=== PATIENT | female | born 1960 | race Caucasian/White ===

== ENCOUNTER → 2017-01-03 | Outpatient (CLI) | payer BC ==
--- NOTE | 2017-01-05 09:00 | MM ---
Reason for exam: screening (asymptomatic). Last mammogram was performed 4 years and 2 months ago. History: Family history of breast cancer in maternal grandmother. Benign US right guided mammotome of the right breast, October 13, 2007. Took hormonal contraceptives for 5 years beginning at age 19. Physical Findings: A clinical breast exam by your physician is recommended on an annual basis and results should be correlated with mammographic findings. MG Screening Mammo w CAD Bilateral CC and MLO view(s) were taken. Prior study comparison: November 10, 2012, bilateral digital screening mammo w/CAD. The breast tissue is heterogeneously dense. This may lower the sensitivity of mammography. Previous mammotome biopsy within the right breast. No significant changes when compared with prior studies. ASSESSMENT: Negative, BI-RAD 1 RECOMMENDATION: Routine screening mammogram of both breasts in 1 year.
== END | disposition home or self-care (01) ==
LOC: RADMAMWWP 06:55
PROVIDERS: ATTEND Family Medicine
DX: Z12.31 Encounter for screening mammogram for malignant neoplasm of breast (principal); Z80.3 Family history of malignant neoplasm of breast

== ENCOUNTER 2017-11-24 22:42 | Observation (INO) | payer BC ==
[2017-11-24] MEDS ORDERED: SODIUM CHLORIDE 0.9% 1,000 ML IV STA ×2 (23:04→23:26)
--- NOTE | 2017-11-24 23:16 | ED ---
Chest Pain HPI - General Chief Complaint: Chest Pain Stated Complaint: Neck/arm pain, nausea Time Seen by Provider: 11/24/17 22:58 Source: patient, RN notes reviewed, old records reviewed Mode of arrival: ambulatory Limitations: no limitations - History of Present Illness Initial Comments: This is a 49-year-old female the ER with history of heart disease coming of left -sided chest pain radiation to left shoulder radiation to left back. No recent travel history no sick contacts no fevers cough or congestion, episodic shortness of breath MD Complaint: chest pain -: hour(s) (1) Onset: during rest Pain Location: left chest Pain Radiation: LUE Severity: mild Severity scale (1-10): 3 Quality: tightness Consistency: constant Improves With: nothing Worsens With: nothing Context: other Anginal Symptoms: nausea Other Symptoms: cough Treatments Prior to Arrival: none, aspirin - Related Data Home Medications Medication Instructions Recorded Confirmed Omeprazole 20 mg PO DAILY 11/24/17 11/24/17 Previous Rx's Medication Instructions Recorded Aspirin 325 mg PO DAILY tab 11/27/17 Metoprolol Tartrate [Lopressor] 25 mg PO BID tab 11/27/17 Nitroglycerin Sl Tabs [Nitrostat] 0.4 mg SUBLINGUAL Q5M PRN tab 11/27/17 Allergies Allergy/AdvReac Type Severity Reaction Status Date / Time No Known Allergies Allergy Verified 11/24/17 23:04 Review of Systems ROS Statement: Those systems with pertinent positive or pertinent negative responses have been documented in the HPI. ROS Other: All systems not noted in ROS Statement are negative. EKG Findings - EKG Comments: EKG Findings:: EKG shows sinus rhythm rate of 77, HI 154, QRS 88, QTC 418 Past Medical History History of Any Multi-Drug Resistant Organisms: None Reported Additional Past Surgical History / Comment(s): LEFT THYROID GLAND REMOVED Past Psychological History: No Psychological Hx Reported Smoking Status: Never smoker Past Alcohol Use History: None Reported Past Drug Use History: None Reported General Exam Limitations: no limitations General appearance: alert, in no apparent distress Head exam: Present: atraumatic, normocephalic, normal inspection Eye exam: Present: normal appearance, PERRL, EOMI. Absent: scleral icterus, conjunctival injection, periorbital swelling ENT exam: Present: normal exam, mucous membranes moist Neck exam: Present: normal inspection. Absent: tenderness, meningismus, lymphadenopathy Respiratory exam: Present: normal lung sounds bilaterally. Absent: respiratory distress, wheezes, rales, rhonchi, stridor Cardiovascular Exam: Present: regular rate, normal rhythm, normal heart sounds. Absent: systolic murmur, diastolic murmur, rubs, gallop, clicks GI/Abdominal exam: Present: soft, normal bowel sounds. Absent: distended, tenderness, guarding, rebound, rigid Extremities exam: Present: normal inspection, full ROM, normal capillary refill. Absent: tenderness, pedal edema, joint swelling, calf tenderness Back exam: Present: normal inspection Neurological exam: Present: alert, oriented X3, CN II-XII intact Psychiatric exam: Present: normal affect, normal mood Skin exam: Present: warm, dry, intact, normal color. Absent: rash Course Vital Signs 11/24/17 11/25/17 22:50 01:03 Temperature 98.2 F Pulse Rate 90 76 Respiratory 18 16 Rate Blood Pressure 186/99 141/91 O2 Sat by Pulse 99 97 Oximetry - Reevaluation(s) Reevaluation #1: 11/25/17 00:34 Medical record is reviewed noncontributory Reevaluation #2: 11/25/17 00:34 CTA chest is negative for PE, does show aneurysmal aorta 4.4cm Chest Pain MDM - MDM 49 female the ER with chest pain. Left-sided classic chest pain with history of family history of heart disease. Patient be admitted for cardiac observation and evaluation and treatment Critical Care Time Critical Care Time: Yes Total Critical Care Time: 31 Disposition Clinical Impression: Chest pain Disposition: ADMITTED IP TO THIS HOSP Condition: Undetermined Is patient prescribed a controlled substance at d/c from ED?: No
[2017-11-24 23:17] LABS: Basophils % (A) 1 %; Eosinophils # (A) 0.2 k/uL (0-0.7); Eosinophils % (A) 3 %; HCT 40.4 % (34.0-46.0); HGB 13.3 gm/dL (11.4-16.0); Lymphocytes % (A) 39 %; MCHC 32.8 g/dL (31.0-37.0); MCV 88.4 fL (80.0-100.0); Mean Platelet Volume 6.8; Monocytes # (A) 0.5 k/uL (0-1.0); Monocytes % (A) 6 %; Neutrophils # (A) 3.7 k/uL (1.3-7.7); Neutrophils % (A) 49 %; Platelet Count 331 k/uL (150-450); RBC 4.57 m/uL (3.80-5.40); RDW 13.1 % (11.5-15.5); WBC 7.6 k/uL (3.8-10.6)
[2017-11-24 23:26] LABS: Partial Thromboplastin Time 24.6 sec (22.0-30.0); Prothrombin Time 9.8 sec (9.0-12.0)
[2017-11-24] MEDS ORDERED: LABETALOL 5 MG/ML VIAL MDV IVP STA (23:26)
[2017-11-24 23:28] LABS: ALT 27 U/L (9-52); AST 27 U/L (14-36); Albumin 4.4 g/dL (3.5-5.0); Alkaline Phosphatase 86 U/L (38-126); Anion Gap 10 mmol/L; Blood Urea Nitrogen 13 mg/dL (7-17); Calcium 9.5 mg/dL (8.4-10.2); Carbon Dioxide 26 mmol/L (22-30); Chloride 106 mmol/L (98-107); Glucose 107 mg/dL (74-99); Magnesium 1.9 mg/dL (1.6-2.3); Phosphorus 3.6 mg/dL (2.5-4.5); Potassium 3.8 mmol/L (3.5-5.1); Sodium 142 mmol/L (137-145); Total Bilirubin 0.4 mg/dL (0.2-1.3); Total Protein 7.5 g/dL (6.3-8.2)
[2017-11-24 23:40] LABS: Creatine Kinase 111 U/L (30-135)
[2017-11-24 23:53] LABS: Creatine Kinase MB 1.1 ng/mL (0.0-2.4); Troponin I <0.012 ng/mL (0.000-0.034)
--- NOTE | 2017-11-25 00:11 | CT ---
EXAMINATION TYPE: CT angio chest DATE OF EXAM: 11/24/2017 11:52 PM COMPARISON: None HISTORY: Burning in chest; neck and left arm pain CT DLP: 152.40 mGycm Automated exposure control for dose reduction was used. CONTRAST: CTA scan of the thorax is performed with IV Contrast, patient injected with 100 mL of Isovue 370, pul monary embolism protocol. There are 3-D post processed images.. FINDINGS: The lungs are clear of consolidation. There is no pleural effusion. There is no evidence of a pulmona ry mass. There is no pericardial effusion. Heart is top normal in size. There is normal contrast opacification of the pulmonary arteries. I see no filling defect. There is a neurysm of the ascending aorta that measures 4.4 cm. There is no evidence of dissection. There is no mediastinal adenopathy. There are no hilar masses. The bony thorax is intact. IMPRESSION: NO EVIDENCE OF PULMONARY EMBOLISM. ANEURYSM OF THE ASCENDING AORTA.
--- NOTE | 2017-11-25 00:29 | CT ---
EXAMINATION TYPE: CT abdomen pelvis w con DATE OF EXAM: 11/24/2017 COMPARISON: None HISTORY: burning in chest; neck and left arm pain. CT DLP: 1464.00 mGycm Automated exposure control for dose reduction was used. TECHNIQUE: Helical acquisition of images was performed from the lung bases through the pelvis. CONTRAST: Performed without Oral Contrast and with IV Contrast, patient injected with 100 mL of Isovue 370. FINDINGS: Lung bases are clear. There is no pleural effusion. There is no pericardial effusion. Heart appears s lightly enlarged. Stomach appears normal. There are multiple circumscribed hypodensities in the liver consistent with m ultiple cysts. There is an atypical 3 cm similar focus in the left lobe of the liver with some centra l increased density. This could be a hemangioma. The spleen appears normal. There is no pancreatic ma ss. Gallbladder appears normal. There is no adrenal mass. Kidneys show satisfactory contrast opacific ation. There is no hydronephrosis. Ureters are not dilated. There is normal contrast excretion on the delayed images of both kidneys. There is no retroperitoneal adenopathy. There is no mesenteric adenopathy or edema. Bladder distends smoothly. Uterus is retroverted. There is no free fluid in the pelvis. I see no pelvic mass. There is prominent left ovarian vein. The mid and lower left ovarian vein do not appear to enhance with the c ontrast. The appendix appears normal. Appendix is medial. I see no intestinal wall thickening. There are no dilated loops. There is no sign of free air. There is no inguinal hernia. The bony pelvis appears intact. IMPRESSION: THERE IS SHARPLY MARGINATED ROUNDED LESION IN THE LEFT LOBE OF THE LIVER WHICH COULD BE A HEMANGIOMA. THIS COULD BE FURTHER EVALUATED WITH ULTRASOUND OR MR IF CLINICALLY INDICATED. I HAVE NO OLD EXAM TO COMPARE. POSSIBLE THROMBOSIS OF THE LEFT OVARIAN VEIN. MULTIPLE HEPATIC CYSTS.
[2017-11-25] MEDS ORDERED: ASPIRIN 81 MG PO STA (00:39)
[2017-11-25] MEDS ORDERED: NITROGLYCERIN SL TABS 0.4 MG TAB SUBLINGUAL PRN (00:39)
[2017-11-25] MEDS ORDERED: HEPARIN SODIUM,PORCINE 5,000 UNIT/ML 1 ML VIAL IV ONE (00:39)
[2017-11-25] MEDS ORDERED: HEPARIN SODIUM,PORCINE 5,000 UNIT/ML 1 ML VIAL IV PRN (00:39)
[2017-11-25] MEDS ORDERED: HEPARIN SOD,PORK IN 0.45% NACL 25,000 UNIT in 0.45% NACL 1 500ML.BAG IV SCH (00:45)
[2017-11-25 06:23] LABS: Mean Platelet Volume 6.9; Platelet Count 295 k/uL (150-450)
[2017-11-25 06:45] LABS: Creatine Kinase 93 U/L (30-135)
[2017-11-25 06:59] LABS: Creatine Kinase MB 0.9 ng/mL (0.0-2.4); Troponin I <0.012 ng/mL (0.000-0.034)
--- NOTE | 2017-11-25 09:32 | P.CRDCN ---
History of Present Illness Consult date: 11/25/17 History of present illness: This is a 57-year-old female with history of labile hypertension who presented to the emergency room with complaints of left-sided shoulder pain associated with nausea and vomiting. Patient had similar symptoms about 2 years ago for which she was evaluated in the emergency room. Subsequently she was seen by Dr. ANNIA Morris and had a stress test in the office. Apparently there was mild abnormality in the past and she has been following with him. Patient hasn't been taking any medications. Yesterday, when she had the shoulder pain, She checked her blood pressure was was high in the range of 160/100. She was also nauseated and vomiting. Patient came to the emergency room and is admitted here for further evaluation. She denied any abdominal pain. Her EKG did not reveal any acute changes. Cardiac enzymes are negative. Patient does have a history of ischemic heart disease in the family. Both her parents had heart attacks in their 60s and 70s. Patient is being scheduled for a stress echocardiogram. Further recommendations depend upon the findings on the stress test Review of Systems As per the chart Past Medical History History of Any Multi-Drug Resistant Organisms: None Reported Additional Past Surgical History / Comment(s): LEFT THYROID GLAND REMOVED Past Psychological History: No Psychological Hx Reported Smoking Status: Never smoker Past Alcohol Use History: None Reported Past Drug Use History: None Reported Medications and Allergies Home Medications Medication Instructions Recorded Confirmed Type Omeprazole 20 mg PO DAILY 11/24/17 11/24/17 History Allergies Allergy/AdvReac Type Severity Reaction Status Date / Time No Known Allergies Allergy Verified 11/24/17 23:04 Physical Exam Vitals: Vital Signs Temp Pulse Pulse Resp BP BP Pulse Ox 11/25/17 04:00 97.2 F L 72 18 125/79 98 11/25/17 02:29 68 18 11/25/17 02:13 97.4 F L 68 18 151/81 96 11/25/17 01:03 76 16 141/91 97 11/24/17 22:50 98.2 F 90 18 186/99 99 Intake and Output 11/24/17 11/25/17 11/25/17 22:59 06:59 14:59 Other: Voiding Method Toilet # Voids 1 Weight 59.421 kg 59.3 kg GENERAL EXAM: Patient is alert and oriented and doesn't appear to be in any acute distress HEENT: Normocephalic. Normal reaction of pupils, equal size, normal range of extraocular motion. No erythema or exudates in the throat. NECK: No masses, no nuchal rigidity. CHEST: No chest wall deformity. LUNGS: Equal air entry with no crackles or wheeze. HEART: S1 and S2 normal with no audible mumurs or gallops. Regular rhythm, femorals equal on both sides.. ABDOMEN: No hepatosplenomegaly, normal bowel sounds, no guarding or rigidity. SKIN: No rashes CENTRAL NERVOUS SYSTEM: No focal deficits. EXTREMITIES: No cyanosis, clubbing or edema. Results 11/25/17 05:53 11/24/17 23:20 Cardiac Enzymes 11/24/17 11/24/17 11/25/17 Range/Units 23:20 23:20 05:53 AST 27 (14-36) U/L CK-MB (CK-2) 1.1 0.9 (0.0-2.4) ng/mL Troponin I <0.012 <0.012 (0.000-0.034) ng/mL Coagulation 11/24/17 11/25/17 Range/Units 23:10 07:37 PT 9.8 (9.0-12.0) sec APTT 24.6 53.6 H (22.0-30.0) sec CBC 11/24/17 11/25/17 Range/Units 23:11 05:53 WBC 7.6 (3.8-10.6) k/uL RBC 4.57 (3.80-5.40) m/uL Hgb 13.3 (11.4-16.0) gm/dL Hct 40.4 (34.0-46.0) % Plt Count 331 295 (150-450) k/uL Comprehensive Metabolic Panel 11/24/17 Range/Units 23:20 Sodium 142 (137-145) mmol/L Potassium 3.8 (3.5-5.1) mmol/L Chloride 106 (98-107) mmol/L Carbon Dioxide 26 (22-30) mmol/L BUN 13 (7-17) mg/dL Creatinine 0.72 (0.52-1.04) mg/dL Glucose 107 H (74-99) mg/dL Calcium 9.5 (8.4-10.2) mg/dL AST 27 (14-36) U/L ALT 27 (9-52) U/L Alkaline Phosphatase 86 (38-126) U/L Total Protein 7.5 (6.3-8.2) g/dL Albumin 4.4 (3.5-5.0) g/dL Current Medications Generic Name Dose Route Start Last Admin Trade Name Freq PRN Reason Stop Dose Admin Aspirin 325 mg 11/26/17 09:00 Aspirin PO DAILY [facility] Heparin Sodium (Porcine) 0 unit 11/25/17 00:39 Heparin IV Q6HR PRN Low PTT Protocol Heparin Sodium/Sodium Chloride 500 mls @ 14.26 mls/hr 11/25/17 00:45 01:45 25,000 unit/ Sodium Chloride IV 12.03 units/kg/hr .Q24H AJITH 14.3 mls/hr Administration Protocol 12 UNITS/KG/HR Metoprolol Tartrate 25 mg 11/25/17 09:00 Lopressor PO BID [facility] Nitroglycerin 0.4 mg 11/25/17 00:39 Nitrostat SUBLINGUAL Q5M PRN Chest Pain Intake and Output 11/24/17 11/25/17 11/25/17 22:59 06:59 14:59 Other: Voiding Method Toilet # Voids 1 Weight 59.421 kg 59.3 kg 11/25/17 05:53 11/24/17 23:20 EKG Interpretations (text) Sinus rhythm with poor R-wave progression in anterior leads Assessment and Plan (1) Labile hypertension Current Visit: Yes Status: Acute Code(s): R09.89 - OTH SYMPTOMS AND SIGNS INVOLVING THE CIRC AND RESP SYSTEMS SNOMED Code(s): 679940380 (2) Chest pain Current Visit: Yes Status: Acute Code(s): R07.9 - CHEST PAIN, UNSPECIFIED SNOMED Code(s): 90330344 Plan: Will proceed with a stress echocardiogram. If that is negative patient could be discharged home. Follow-up with Dr. ANNIA Morris
[2017-11-25] MEDS ORDERED: CAFFEINE CITRATE 60 MG/3 ML VIAL IV PRN (09:41)
[2017-11-25] MEDS ORDERED: REGADENOSON 0.4 MG/5 ML SYRINGE IV ONE (09:41)
[2017-11-25] MEDS ORDERED: SODIUM CHLORIDE 0.9% 1,000 ML IV ONE (09:41)
--- NOTE | 2017-11-25 11:11 | P.HPIM ---
History of Present Illness H&P Date: 11/25/17 Chief Complaint: Chest pain This is a 57-year-old female, patient of Dr. Jalloh. 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 Patient presented to the emergency room with complaints of left shoulder pain associated with nausea and vomiting. Patient reports she did take an aspirin and did help relieve the symptoms. His she had a previous stress test but her urine a half ago. Per patient had mild abnormality in she's been following up with him in the outpatient setting. Patient presented to the emergency room for further evaluation of this left shoulder pain. Both her mom and dad have a known history of heart disease. troponins were negative 3. EKG normal sinus rhythm. CT of the chest was negative for PE but did reveal a 4.4 cm ascending aortic aneurysm. Abdominal CAT scan completed showing a sharply marginated rounded lesion in the left lower lobe of the liver which could be a hemangioma. Abdominal ultrasound has been ordered for further evaluation of this. Also noted on CAT scan and possible thrombus of the left ovarian vein and multiple hepatic cysts. At this time patient is chest pain-free. She denies any shortness of breath. Denies any diaphoresis denies any dizziness or lightheadedness. Denies any bowel movement changes or urinary symptoms. She has been evaluated by cardiology and she is scheduled for a stress echo. Review of Systems Please refer to HPI otherwise unremarkable Past Medical History History of Any Multi-Drug Resistant Organisms: None Reported Additional Past Surgical History / Comment(s): LEFT THYROID GLAND REMOVED Past Psychological History: No Psychological Hx Reported Smoking Status: Never smoker Past Alcohol Use History: None Reported Past Drug Use History: None Reported Medications and Allergies Home Medications Medication Instructions Recorded Confirmed Type Omeprazole 20 mg PO DAILY 11/24/17 11/24/17 History Allergies Allergy/AdvReac Type Severity Reaction Status Date / Time No Known Allergies Allergy Verified 11/24/17 23:04 Physical Exam Vitals: Vital Signs Temp Pulse Pulse Resp BP BP Pulse Ox 11/25/17 09:00 97.3 F L 72 15 148/82 97 11/25/17 08:45 65 15 11/25/17 04:00 97.2 F L 72 18 125/79 98 11/25/17 02:29 68 18 11/25/17 02:13 97.4 F L 68 18 151/81 96 11/25/17 01:03 76 16 141/91 97 11/24/17 22:50 98.2 F 90 18 186/99 99 Intake and Output 11/24/17 11/25/17 11/25/17 22:59 06:59 14:59 Other: Voiding Method Toilet Toilet # Voids 1 Weight 59.421 kg 59.3 kg Head normocephalic Neck supple Lungs clear to auscultation bilaterally no wheezing or crackles Heart regular rate and rhythm S1-S2, no rub or gallop Abdomen is soft nontender nondistended positive bowel sounds no hepatosplenomegaly Extremities no edema Neuro alert and orientated to 3 Results CBC & Chem 7: 11/25/17 05:53 11/24/17 23:20 Labs: Abnormal Lab Results - Last 24 Hours (Table) 11/24/17 11/25/17 Range/Units 23:20 07:37 APTT 53.6 H (22.0-30.0) sec Glucose 107 H (74-99) mg/dL Thrombosis Risk Factor Assmnt - Choose All That Apply Any of the Below Risk Factors Present?: Yes Each Factor Represents 1 point: Age 41-60 years Other Risk Factors: No Other congenital or acquired thrombophilia - If yes, enter type in comment: No Thrombosis Risk Factor Assessment Total Risk Factor Score: 1 Thrombosis Risk Factor Assessment Level: Low Risk Assessment and Plan Assessment: 1. Chest pain: Troponins negative 3 sets. EKG normal sinus rhythm. CTA negative for PE. Patient is scheduled for stress echo with cardiology today. 2. Essential hypertension with elevated blood pressure required labetalol in the ER. Blood pressures are showing improvement. Started on metoprolol 25 mg twice a day in ER 3. GERD resume omeprazole 4. 4.4 cm ascending aortic aneurysm noted on CAT scan of the chest 5. Sharply marginated rounded lesion in the left lobe of the liver noted on computed tomography scan the abdomen and pelvis. We'll further evaluate with abdominal ultrasound. Oncology will be consulted as well. 6. Possible thrombosis of the left ovarian vein and multiple hepatic cysts. Continue to monitor. GI prophylaxis omeprazole and DVT prophylaxis IV heparin Time with Patient: Greater than 30 (Greater than 60% of the total time spent in counseling and coordination of care.I performed an examination of the patient and discussed their management with the physician Desk Lieutenant. I have reviewed the Physician Desk Lieutenant's notes and agree with the documented findings and plan of care)
--- NOTE | 2017-11-25 11:19 | ECHOF ---
Referral Reason:chest pain MEASUREMENTS -------- HEIGHT: 154.9 cm WEIGHT: 59.0 kg BP: RVIDd: 3.4 cm (< 3.3) IVSd: 1.2 cm (0.6 - 1.1) LVIDd: 3.3 cm (3.9 - 5.3) LVPWd: 1.4 cm (0.6 - 1.1) IVSs: 1.6 cm LVIDs: 2.3 cm LVPWs: 1.7 cm Ao Diam: 3.0 cm (2.0 - 3.7) AV Cusp: 2.0 cm (1.5 - 2.6) LA Diam: 3.8 cm (2.7 - 3.8) MV EXCURSION: 9.111 mm (> 18.000) MV EF SLOPE: 66 mm/s (70 - 150) EPSS: 0.9 cm MV E Juan Francisco: 0.90 m/s MV DecT: 223 ms MV A Juan Francisco: 1.10 m/s MV E/A Ratio: 0.82 AR PHT: 251 ms RAP: 5.00 mmHg RVSP: 29.47 mmHg FINDINGS -------- Sinus rhythm. This was a technically good study. The left ventricular size is normal. There is mild concentric left ventricular hypertrophy. Overa ll left ventricular systolic function is normal with, an EF between 55 - 60 %. The right ventricle is normal in size. The left atrium is normal in size. The right atrium is normal in size. Trace amount of aortic regurgitation. The mitral valve leaflets are mildly thickened. Mild mitral regurgitation is present. Mild tricuspid regurgitation present. The right ventricular systolic pressure, as measured by Doppl er, is 29.47mmHg. Trace/mild (physiologic) pulmonic regurgitation. The aortic root size is normal. Normal inferior vena cava with normal inspiratory collapse consistent with estimated right atrial pre ssure of 5 mmHg. The pericardium is normal. CONCLUSIONS -------- 1. Sinus rhythm. 2. This was a technically good study. 3. The left ventricular size is normal. 4. There is mild concentric left ventricular hypertrophy. 5. Overall left ventricular systolic function is normal with, an EF between 55 - 60 %. 6. The right ventricle is normal in size. 7. The left atrium is normal in size. 8. The right atrium is normal in size. 9. Trace amount of aortic regurgitation. 10. The mitral valve leaflets are mildly thickened. 11. Mild mitral regurgitation is present. 12. Mild tricuspid regurgitation present. 13. The right ventricular systolic pressure, as measured by Doppler, is 29.47mmHg. 14. Trace/mild (physiologic) pulmonic regurgitation. 15. The aortic root size is normal. 16. Normal inferior vena cava with normal inspiratory collapse consistent with estimated right atrial pressure of 5 mmHg. 17. The pericardium is normal. PHYSICIAN OFFICE SPECIALIST: Rebeca Brooks RDCS
--- NOTE | 2017-11-25 11:56 | US ---
EXAMINATION TYPE: US abdomen complete DATE OF EXAM: 11/25/2017 COMPARISON: CT CLINICAL HISTORY: liver lesion on CT. EXAM MEASUREMENTS: Liver Length: 13.9 cm Gallbladder Wall: 0.2 cm CBD: 0.9 cm Spleen: 10.3 cm Right Kidney: 10.5 x 4.5 x 4.7 cm Left Kidney: 9.7 x 4.5 x 5.6 cm Study somewhat limited by overlying bowel gas. Pancreas: obscured by bowel gas Liver: multiple small cysts throughout, irregular area left lobe measures 2.9 x 2.5 x 2.4 cm, is iso echoic. Gallbladder: No stones seen Evidence for sonographic Mai's sign: No CBD: measures 0.9 cm, dilated Spleen: wnl Right Kidney: No hydronephrosis or masses seen Left Kidney: No hydronephrosis or masses seen Upper IVC: wnl Abd Aorta: wnl IMPRESSION: 1. Multiple hepatic cysts. There is a somewhat irregular area involving the left lobe of the liver me asuring 2.[address] abnormality. MRI recommended. Finding is not compatible with a simple cyst. Therefore MRI recommended. 2. Distal CBD is dilated measuring 9 mm distal CBD stricture obstruction in the differential diagnosi s. Correlate clinically.
--- NOTE | 2017-11-25 12:27 | ECHOS ---
STRESS ECHOCARDIOGRAM INDICATIONS: Chest pain. MEDICATIONS: Omeprazole. BASELINE HEART RATE: 102 BASELINE BLOOD PRESSURE: 141/74 MAXIMUM HEART RATE: 154 MAXIMUM BLOOD PRESSURE: 175/94 85% MPHR: 138 100% MPHR: 162 METS: 8.5 MAXIMUM STAGE REACHED: 3 TOTAL EXERCISE TIME: 7:00 CLINICAL INFORMATION: Baseline EKG revealed normal sinus rhythm without significant ST-T changes. Patient walked for 7 minutes on a standard [place] protocol, achieved a maximal heart rate of 154 beats per minute which is well above 85% of maximal. She developed fatigue and shortness of breath but did not have any angina or arrhythmia. Nonspecific upsloping ST-segment changes were noted without any arrhythmia and there was no angina. This is a negative stress test with fair exercise capacity. Baseline echo images revealed normal wall motion and wall thickening of all segments. At peak exercise, there was good augmentation of left ventricular wall motion, wall thickening of all segments suggesting that there is no evidence of stress-induced ischemia on this study. IMPRESSION: 1. Fair exercise capacity with a negative stress test by EKG criteria. 2. Normal stress echocardiogram. MMODL / IJN: [id number] /
[2017-11-25 12:42] LABS: Creatine Kinase 90 U/L (30-135)
--- NOTE | 2017-11-25 12:51 | P.CONS ---
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 She presented to the emergency room with complaints of left shoulder pain associated with nausea and vomiting. Shoulder pain did improve on Aspirin. Cardiac work-up in ED included troponins negative 3. EKG normal sinus rhythm. CT of the chest was negative for PE but did reveal a 4.4 cm ascending aortic aneurysm. Abdominal CT scan completed showing a sharply marginated rounded lesion in the left lower lobe of the liver which could be a hemangioma. Abdominal ultrasound ordered. Also noted on CT scan and possible thrombus of the left ovarian vein (heparin drip initiated on admission) and multiple hepatic cysts. Abdominal Ultrasound re-revealed CT findings of irregular area involving left liver lobe measuring 2.9cm as well as distal common bile duct dilation 9mm. Apon initial evaluation patient denies any recent weight loss, changes in Bowels or Bladder, or shortness of breath. She is a lifelong nonsmoker, no alcohol use except minimally social (2x a year) . 5, Para 3. Sister with NHL Maternal Grandfather with GI (?Liver) Carcinoma Last Menstraul period 2013. Positive night sweats, no change since menopause Last year she felt nausea and fatigue and had EGD and colonoscopy, she is up to date on preventative care, mammograms and pap smears. One abnormal pap in past and underwent cryosurgery approx 10 years ago. Review of Systems A 14 point Review of systems assesed and completed and all negative except HPI Past Medical History History of Any Multi-Drug Resistant Organisms: None Reported Additional Past Surgical History / Comment(s): LEFT THYROID GLAND REMOVED Past Psychological History: No Psychological Hx Reported Smoking Status: Never smoker Past Alcohol Use History: None Reported Past Drug Use History: None Reported Medications and Allergies Home Medications Medication Instructions Recorded Confirmed Type Omeprazole 20 mg PO DAILY 11/24/17 11/24/17 History Allergies Allergy/AdvReac Type Severity Reaction Status Date / Time No Known Allergies Allergy Verified 11/24/17 23:04 Physical Exam Vitals: Vital Signs Temp Pulse Pulse Resp BP BP Pulse Ox 11/25/17 09:00 97.3 F L 72 15 148/82 97 11/25/17 08:45 65 15 11/25/17 04:00 97.2 F L 72 18 125/79 98 11/25/17 02:29 68 18 11/25/17 02:13 97.4 F L 68 18 151/81 96 11/25/17 01:03 76 16 141/91 97 11/24/17 22:50 98.2 F 90 18 186/99 99 Intake and Output 11/24/17 11/25/17 11/25/17 22:59 06:59 14:59 Other: Voiding Method Toilet Toilet # Voids 1 Weight 59.421 kg 59.3 kg Head normocephalic, nontraumatic Neck supple, trachea Midline Lymph Nodes - No cervical, axillay or inguinal palpable lymph nodes on exam Lungs clear to auscultation bilaterally no wheezing or crackles Heart regular rate and rhythm S1-S2 Abdomen is soft nontender nondistended positive bowel sounds no hepatosplenomegaly Extremities no edema, lesions or rashes Neuro - non Focal, Calm and cooperative, alert and orientated to 3 Results Results: Ultrasound Doppler BLE Negative and LUE negative CBC & Chem 7: 11/25/17 05:53 11/24/17 23:20 Labs: Abnormal Lab Results - Last 24 Hours (Table) 11/24/17 11/25/17 Range/Units 23:20 07:37 APTT 53.6 H (22.0-30.0) sec Glucose 107 H (74-99) mg/dL CT scan - abdomen: report reviewed CT scan - chest: report reviewed CT scan - pelvis: report reviewed US - abdomen: report reviewed Assessment and Plan Plan: Assessment and Recommendations: 1. New Liver abnormality 2.9cm: ?Lesion - Differentials include hemangioma, malignancy, less likely cyst although CT scan and ultrasound do identify multiple hepatic cysts - Recommend GI Input regarding further diagnostics with MRCP versus ERCP 2. Probable Ovarian Vein Thrombus: - This is usually an incidental finding not warranting anticoagulation unless in the event of another clot, or symptoms. - Since dopplers are negative and cardiac work-up negative may discontinue anticoagulation therapy 3. Nausea and Vomiting on Presentation: Resolved 4. Left Shoulder Pain - Original cause of presentation to ED: - Cardiac Work-up thus far negative - Incidental Finding aortic aneurysm 4.4cm - Cardiology Following - Probable musculoskeletal 5. CBD Dilation on Ultrasound: - GI input is resonable. Thank you for allowing us to take part in the care of this patient.
[2017-11-25 12:54] LABS: Creatine Kinase MB 0.7 ng/mL (0.0-2.4); Troponin I <0.012 ng/mL (0.000-0.034)
[2017-11-25] MEDS: PANTOPRAZOLE 40 MG TABLET PO SCH (14:07)
[2017-11-25] MEDS: METOPROLOL TARTRATE 25 MG TAB PO SCH ×2 (14:07→23:22)
--- NOTE | 2017-11-25 18:21 | US ---
EXAMINATION TYPE: US venous doppler duplex UE LT DATE OF EXAM: 11/25/2017 COMPARISON: NONE CLINICAL HISTORY: LUE pain. SIDE PERFORMED: left Left Arm: Negative for DVT IMPRESSION: There is normal venous flow demonstrated in the left side subclavian axillary and brachial vein. Ther e is venous flow in the jugular vein. Cephalic vein is patent. No evidence of deep venous thrombosis.
--- NOTE | 2017-11-25 18:21 | US ---
EXAMINATION TYPE: US venous doppler duplex LE BI DATE OF EXAM: 11/25/2017 5:01 PM COMPARISON: NONE CLINICAL HISTORY: Le swelling. SIDE PERFORMED: Bilateral TECHNIQUE: The lower extremity deep venous system is examined utilizing real time linear array sonog sujata with graded compression, doppler sonography and color-flow sonography. VESSELS IMAGED: External Iliac Vein (EIV) Common Femoral Vein Deep Femoral Vein Greater Saphenous Vein * Femoral Vein Popliteal Vein Small Saphenous Vein * Proximal Calf Veins (* superficial vessels) Right Leg: Negative for DVT Left Leg: Negative for DVT IMPRESSION: No evidence of deep venous thrombosis in both legs.
[2017-11-25] MEDS: ACETAMINOPHEN TAB 325 MG TAB PO PRN (23:22)
[2017-11-26] MEDS: ACETAMINOPHEN TAB 325 MG TAB PO PRN ×2 (05:38→20:38)
[2017-11-26] MEDS: PANTOPRAZOLE 40 MG TABLET PO SCH (06:08)
[2017-11-26 06:37] LABS: Basophils % (A) 1 %; Eosinophils # (A) 0.1 k/uL (0-0.7); Eosinophils % (A) 3 %; HGB 12.3 gm/dL (11.4-16.0); Lymphocytes # (A) 1.9 k/uL (1.0-4.8); Lymphocytes % (A) 40 %; MCH 29.7 pg (25.0-35.0); MCHC 33.1 g/dL (31.0-37.0); MCV 89.7 fL (80.0-100.0); Mean Platelet Volume 6.7; Monocytes # (A) 0.3 k/uL (0-1.0); Monocytes % (A) 6 %; Neutrophils # (A) 2.3 k/uL (1.3-7.7); Neutrophils % (A) 48 %; Platelet Count 292 k/uL (150-450); RBC 4.13 m/uL (3.80-5.40); RDW 13.1 % (11.5-15.5); WBC 4.8 k/uL (3.8-10.6)
[2017-11-26 06:48] LABS: ALT 18 U/L (9-52); AST 20 U/L (14-36); Albumin 3.7 g/dL (3.5-5.0); Alkaline Phosphatase 58 U/L (38-126); Anion Gap 7 mmol/L; Blood Urea Nitrogen 13 mg/dL (7-17); Calcium 9.4 mg/dL (8.4-10.2); Carbon Dioxide 26 mmol/L (22-30); Chloride 108 mmol/L (98-107); Cholesterol 235 mg/dL (<200); Glucose 85 mg/dL (74-99); HDL Cholesterol 82 mg/dL (40-60); LDL Cholesterol,Calculated 137 mg/dL (0-99); Potassium 4.4 mmol/L (3.5-5.1); Sodium 141 mmol/L (137-145); Total Protein 6.4 g/dL (6.3-8.2); Triglycerides 80 mg/dL (<150)
--- NOTE | 2017-11-26 09:14 | P.PN ---
Subjective Progress Note Date: 11/26/17 The patient feels overall well. Her chest and shoulder discomfort are much improved. No obvious bleeding noted. She denies any numbness in the left arm. Objective - Vital Signs Vital signs: Vital Signs Temp 97.0 F L 11/26/17 03:58 Pulse 63 11/26/17 03:58 Resp 16 11/26/17 03:58 BP 130/86 11/26/17 03:58 Pulse Ox 98 11/26/17 07:41 Intake & Output 11/25/17 11/26/17 11/26/17 18:59 06:59 18:59 Intake Total 742 580 Balance 742 580 Weight 58.5 kg Intake: Intake, IV Titration 520 Amount Heparin Sod,Pork in 0.45% 120 NaCl 25,000 unit In 0.45 % NaCl 1 500ml.bag @ 12 UNITS/KG/HR 14.26 mls/hr IV .Q24H [facility] Rx#: [id number] Sodium Chloride 0.9% 1, 400 000 ml @ 20 mls/hr IV . Q24H [facility] Rx#:[id number] Oral 222 580 Other: Voiding Method Toilet Toilet # Voids 3 - Constitutional General appearance: Present: no acute distress - EENT Eyes: Present: EOMI ENT: Present: hearing grossly normal, normal oropharynx - Respiratory Respiratory: bilateral: CTA - Cardiovascular Rhythm: regular Heart sounds: normal: S1, S2 - Peripheral pulses radial pulse Peripheral Pulses: bilateral: Normal (Pulse volume appears to be equal bilaterally) - Gastrointestinal General gastrointestinal: Present: normal bowel sounds, soft - Integumentary Integumentary: Present: normal - Neurologic Neurologic: Present: CNII-XII intact - Musculoskeletal Musculoskeletal: Present: generalized weakness, strength equal bilaterally - Psychiatric Psychiatric: Present: A&O x's 3, appropriate affect - Labs CBC & Chem 7: 11/26/17 05:53 11/26/17 05:53 Labs: Abnormal Lab Results - Last 24 Hours (Table) 11/26/17 Range/Units 05:53 Chloride 108 H (98-107) mmol/L Cholesterol 235 H (<200) mg/dL LDL Cholesterol, Calc 137 H (0-99) mg/dL HDL Cholesterol 82 H (40-60) mg/dL Assessment and Plan (1) Chest pain Narrative/Plan: The cause of this is unclear at this time. Acute cardiac injury has been ruled out, and cessation of anticoagulation was recommended by cardiology. The patient feels better today. This may be muscular skeletal in nature. Defer to cardiology as to whether this could be related to a thoracic aortic aneurysm and hypertension Doppler of the left upper extremity was negative. On physical exam pulses appear to be equal bilaterally Current Visit: Yes Status: Acute Code(s): R07.9 - CHEST PAIN, UNSPECIFIED SNOMED Code(s): 60836606 (2) Thrombosis of ovarian vein Narrative/Plan: It is not definite as the patient even has a clot or not. In addition even if there is a clot, the age is not known. The patient has no symptoms whatsoever related to that. Even for definite, acute thrombosis of the ovarian vein, there is no known benefit of anticoagulation, unless the patient is symptomatic, and/or there is concern for ovarian infarction and fertility preservation. As the patient has no evidence of DVT in her lower extremities or upper extremity, there is no indication for anticoagulation at this time. Therefore heparin was discontinued last p.m. The Doppler findings, and the rationale for the plan above was discussed in detail with the patient and family members. Current Visit: Yes Status: Acute Code(s): I82.890 - ACUTE EMBOLISM AND THROMBOSIS OF OTHER SPECIFIED VEINS SNOMED Code(s): 57751690 (3) Liver mass Narrative/Plan: The patient has an indeterminate liver mass, as well as mild degree of biliary duct dilation. However liver enzymes are normal. Therefore it is quite possible that the liver mass is a benign finding, and the ductal size a normal variant. A GI consult has been placed. We will defer to them as to further workup in this regard. MRCP may be of benefit Current Visit: Yes Status: Acute Code(s): R16.0 - HEPATOMEGALY, NOT ELSEWHERE CLASSIFIED SNOMED Code(s): 573787863
[2017-11-26] MEDS: ASPIRIN 325 MG TAB PO SCH (09:20)
[2017-11-26] MEDS: METOPROLOL TARTRATE 25 MG TAB PO SCH ×2 (09:20→20:38)
[2017-11-26] MEDS ORDERED: ONDANSETRON 4 MG/2 ML VIAL IVP PRN (13:04)
--- NOTE | 2017-11-26 13:51 | P.PN ---
Subjective Progress Note Date: 11/26/17 This is a 57-year-old female, patient of Dr. Jalloh. 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 Patient presented to the emergency room with complaints of left shoulder pain associated with nausea and vomiting. Patient reports she did take an aspirin and did help relieve the symptoms. His she had a previous stress test but her urine a half ago. Per patient had mild abnormality in she's been following up with him in the outpatient setting. Patient presented to the emergency room for further evaluation of this left shoulder pain. Both her mom and dad have a known history of heart disease. troponins were negative 3. EKG normal sinus rhythm. CT of the chest was negative for PE but did reveal a 4.4 cm ascending aortic aneurysm. Abdominal CAT scan completed showing a sharply marginated rounded lesion in the left lower lobe of the liver which could be a hemangioma. Abdominal ultrasound has been ordered for further evaluation of this. Also noted on CAT scan and possible thrombus of the left ovarian vein and multiple hepatic cysts. At this time patient is chest pain-free. She denies any shortness of breath. Denies any diaphoresis denies any dizziness or lightheadedness. Denies any bowel movement changes or urinary symptoms. She has been evaluated by cardiology and she is scheduled for a stress echo. On 11/26/2017 patient was seen and examined on the telemetry 6 floor, she is alert and oriented 3, she is complaining of nausea and actually had 2 episodes of vomiting today, otherwise she denies any complaints, cardiology evaluation including stress echocardiogram, and consultation reviewed, also input from Dr. Raphael regarding ovarian vein thrombosis were reviewed, at this time will transfer patient off telemetry floor to a regular medical floor, we are awaiting gastroenterology evaluation regarding liver mass, dilated common bile duct, and nausea and vomiting. Objective - Vital Signs Vital signs: Vital Signs Temp 97.8 F 11/26/17 08:00 Pulse 71 11/26/17 11:12 Resp 16 11/26/17 11:12 BP 143/87 11/26/17 11:08 Pulse Ox 98 11/26/17 11:08 Intake & Output 11/25/17 11/26/17 11/26/17 18:59 06:59 18:59 Intake Total 742 580 240 Balance 742 580 240 Weight 58.5 kg Intake: Intake, IV Titration 520 Amount Heparin Sod,Pork in 0.45% 120 NaCl 25,000 unit In 0.45 % NaCl 1 500ml.bag @ 12 UNITS/KG/HR 14.26 mls/hr IV .Q24H [facility] Rx#: [id number] Sodium Chloride 0.9% 1, 400 000 ml @ 20 mls/hr IV . Q24H [facility] Rx#:[id number] Oral 222 580 240 Other: Voiding Method Toilet Toilet Toilet # Voids 3 - Exam Head normocephalic Neck supple no JVD no goiter no lymphadenopathy Lungs clear to auscultation bilaterally no wheezing or crackles Heart regular heart sounds S1 and S2 no gallops no murmurs Abdomen is soft nontender nondistended positive bowel sounds no hepatosplenomegaly Extremities no edema no cyanosis or clubbing Neuro alert and orientated to 3 - Labs CBC & Chem 7: 11/26/17 05:53 11/26/17 05:53 Labs: Abnormal Lab Results - Last 24 Hours (Table) 11/26/17 Range/Units 05:53 Chloride 108 H (98-107) mmol/L Cholesterol 235 H (<200) mg/dL LDL Cholesterol, Calc 137 H (0-99) mg/dL HDL Cholesterol 82 H (40-60) mg/dL Assessment and Plan Plan: 1. Chest pain: Troponins negative 3 sets. EKG normal sinus rhythm. CTA negative for PE. Patient is scheduled for stress echo with cardiology today. 2. Essential hypertension with elevated blood pressure required labetalol in the ER. Blood pressures are showing improvement. Started on metoprolol 25 mg twice a day in ER 3. GERD resume omeprazole 4. 4.4 cm ascending aortic aneurysm noted on CAT scan of the chest 5. Sharply marginated rounded lesion in the left lobe of the liver noted on computed tomography scan the abdomen and pelvis. We'll further evaluate with abdominal ultrasound. Oncology will be consulted as well. 6. Possible thrombosis of the left ovarian vein and multiple hepatic cysts. Continue to monitor. 7. Episodes of nausea and vomiting, awaiting gastroenterology input GI prophylaxis omeprazole and DVT prophylaxis IV heparin
[2017-11-27 05:12] LABS: Basophils % (A) 1 %; Eosinophils # (A) 0.2 k/uL (0-0.7); Eosinophils % (A) 4 %; HCT 38.5 % (34.0-46.0); HGB 12.8 gm/dL (11.4-16.0); Lymphocytes # (A) 1.9 k/uL (1.0-4.8); Lymphocytes % (A) 35 %; MCH 29.7 pg (25.0-35.0); MCHC 33.3 g/dL (31.0-37.0); MCV 89.2 fL (80.0-100.0); Mean Platelet Volume 6.8; Monocytes # (A) 0.3 k/uL (0-1.0); Monocytes % (A) 6 %; Neutrophils # (A) 2.7 k/uL (1.3-7.7); Neutrophils % (A) 52 %; Platelet Count 284 k/uL (150-450); RBC 4.31 m/uL (3.80-5.40); WBC 5.2 k/uL (3.8-10.6)
[2017-11-27 05:29] LABS: ALT 25 U/L (9-52); AST 21 U/L (14-36); Albumin 3.8 g/dL (3.5-5.0); Alkaline Phosphatase 59 U/L (38-126); Anion Gap 8 mmol/L; Blood Urea Nitrogen 16 mg/dL (7-17); Calcium 9.4 mg/dL (8.4-10.2); Carbon Dioxide 26 mmol/L (22-30); Chloride 106 mmol/L (98-107); Glucose 89 mg/dL (74-99); Potassium 4.4 mmol/L (3.5-5.1); Sodium 140 mmol/L (137-145); Total Bilirubin 0.7 mg/dL (0.2-1.3); Total Protein 6.5 g/dL (6.3-8.2)
[2017-11-27] MEDS: PANTOPRAZOLE 40 MG TABLET PO SCH (06:08)
[2017-11-27] MEDS: ASPIRIN 325 MG TAB PO SCH (07:40)
[2017-11-27] MEDS: METOPROLOL TARTRATE 25 MG TAB PO SCH (07:40)
--- NOTE | 2017-11-27 10:27 | P.CONS ---
History of Present Illness - Reason for Consult Consult date: 11/26/17 Dilated common bile duct. - History of Present Illness The patient is a 57-year-old female who presented to the emergency room with the complaints of left shoulder pain associated with nausea and vomiting. She was admitted and had workup for possible cardiac etiology or PE as well as possible dissecting aortic aneurysm and all the studies have been negative. CT of the abdomen and ultrasound were performed. There was a sharply marginated rounded lesion in the left lobe of the liver which could be a hemangioma and a dilated common bile duct to around 9 mm. We are asked to see her regarding this problem. The patient has history of reflux disease and partial thyroid gland removal. There is family history of possible liver cancer in her maternal grandfather. The patient has upper endoscopy and colonoscopy last year and is up-to-date on her screening exams. Her liver enzymes have been normal. She denied history of jaundice, weight loss or any alarm symptoms. Review of Systems Constitutional: No history of fever, chills or unintentional weight loss Neurologic: No headaches, double vision, other sensory or motor changes Cardiopulmonary: No chest pains, shortness of breath or palpitations Gastrointestinal: See present illness above Genitourinary: No hematuria, dysuria or frequency Skin: No rashes Hematologic: No bleeding tendency or anemia Endocrine: No polyuria, polydipsia or heat or cold intolerance Musculoskeletal: No joint swelling or pain Psychiatric: No anxiety or depression Past Medical History History of Any Multi-Drug Resistant Organisms: None Reported Additional Past Surgical History / Comment(s): LEFT THYROID GLAND REMOVED Past Psychological History: No Psychological Hx Reported Smoking Status: Never smoker Past Alcohol Use History: None Reported Past Drug Use History: None Reported Medications and Allergies Home Medications Medication Instructions Recorded Confirmed Type Omeprazole 20 mg PO DAILY 11/24/17 11/24/17 History Allergies Allergy/AdvReac Type Severity Reaction Status Date / Time No Known Allergies Allergy Verified 11/24/17 23:04 Physical Exam Vitals: Vital Signs Temp Pulse Resp BP BP Pulse Ox 11/26/17 20:00 97.1 F L 64 16 145/86 97 11/26/17 11:12 71 16 11/26/17 11:08 71 16 143/87 98 11/26/17 08:00 97.8 F 76 21 125/69 95 11/26/17 07:41 98 11/26/17 03:58 97.0 F L 63 16 130/86 97 11/26/17 00:00 97.9 F 68 17 135/83 96 Intake and Output 11/26/17 11/26/17 11/26/17 06:59 14:59 22:59 Intake Total 100 462 222 Output Total 100 Balance 100 462 122 Intake: Oral 100 462 222 Output: Urine 100 Other: Voiding Method Toilet Toilet Toilet # Voids 3 Weight 58.5 kg General: Appeared stated age, very pleasant in no acute distress Head and neck: Normocephalic and atraumatic, conjunctivae pink and sclerae not icteric, mucous membranes moist and pink. No masses in the neck or tracheal shifts Lungs: Clear to auscultation with no dullness to percussion Heart: Regular, no abnormal sounds, murmurs, gallops or friction biopsies Abdomen: Soft, no masses or organomegalies. No tenderness, guarding or rebound, bowel sounds present Extremities: No clubbing, cyanosis or edema Neurologic: Alert and oriented 3, cranial nerves grossly intact, no gross sensory or motor abnormalities Results CBC & Chem 7: 11/27/17 04:40 11/27/17 04:40 Labs: Abnormal Lab Results - Last 24 Hours (Table) 11/26/17 Range/Units 05:53 Chloride 108 H (98-107) mmol/L Cholesterol 235 H (<200) mg/dL LDL Cholesterol, Calc 137 H (0-99) mg/dL HDL Cholesterol 82 H (40-60) mg/dL Assessment and Plan Assessment: Left liver lobe lesion of undetermined nature, possibly hemangioma, and slightly dilated common bile duct, with no evidence of pancreatic masses or filling defects and normal liver enzymes, is probably a normal variant. However , because of both the liver lesion and the dilated bile duct, consideration can be given for elective MRI as outpatient. Plan: Agree with your current management. The patient was reassured. Will continue to follow with you while she is in the hospital and consider MRI after discharge as outpatient.
[2017-11-27] MEDS: ACETAMINOPHEN TAB 325 MG TAB PO PRN (15:51)
[2017-11-27 17:01] VITALS: BP 137/85; PULSE 69; RESP 18; TEMP 97.9
--- NOTE | 2017-11-27 17:36 | P.DS ---
Providers Date of admission: 11/25/17 00:34 Expected date of discharge: 11/27/17 Attending physician: Macy Barker Consults: 11/25/17 00:39 Consult Physician Urgent Consulting Provider: Donte Santana Consult Reason/Comments: cp Do you want consulting provider notified?: Yes 11/25/17 11:02 Consult Physician Routine Consulting Provider: Erick Raphael Consult Reason/Comments: liver lesion Do you want consulting provider notified?: Yes 11/25/17 13:59 Consult Physician Routine Consulting Provider: Kate Mina Consult Reason/Comments: dilated CBD Do you want consulting provider notified?: Yes Primary care physician: Rust Course: Diagnosis on discharge: 1. Chest pain: Troponins negative 3 sets. EKG normal sinus rhythm. CTA negative for PE. Patient was evaluated by cardiology she underwent a stress echo testing which was negative she was cleared for discharge by cardiology 2. Essential hypertension with elevated blood pressure required labetalol in the ER. Blood pressures are showing improvement. Started on metoprolol 25 mg twice a day in ER 3. GERD resume omeprazole 4. 4.4 cm ascending aortic aneurysm noted on CAT scan of the chest 5. Sharply marginated rounded lesion in the left lobe of the liver noted on computed tomography scan the abdomen and pelvis. Likely representing hemangioma patient also had evidence of mildly dilated common bile duct she will follow-up as outpatient with gastroenterology and will have an MRI as outpatient 6. Possible thrombosis of the left ovarian vein and multiple hepatic cysts. Continue to monitor. 7. Episodes of nausea and vomiting, cause is unclear, patient given the choice of having an EGD as inpatient or follow-up with Dr. Christensen as outpatient and she chose to proceed with outpatient testing Hospital course: This is a 57-year-old female, patient of Dr. Jalloh. 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 Patient presented to the emergency room with complaints of left shoulder pain associated with nausea and vomiting. Patient reports she did take an aspirin and did help relieve the symptoms. His she had a previous stress test but her urine a half ago. Per patient had mild abnormality in she's been following up with him in the outpatient setting. Patient presented to the emergency room for further evaluation of this left shoulder pain. Both her mom and dad have a known history of heart disease. troponins were negative 3. EKG normal sinus rhythm. CT of the chest was negative for PE but did reveal a 4.4 cm ascending aortic aneurysm. Abdominal CAT scan completed showing a sharply marginated rounded lesion in the left lower lobe of the liver which could be a hemangioma. Abdominal ultrasound has been ordered for further evaluation of this. Also noted on CAT scan and possible thrombus of the left ovarian vein and multiple hepatic cysts. At this time patient is chest pain-free. She denies any shortness of breath. Denies any diaphoresis denies any dizziness or lightheadedness. Denies any bowel movement changes or urinary symptoms. She has been evaluated by cardiology and she is scheduled for a stress echo. On 11/26/2017 patient was seen and examined on the telemetry 6 floor, she is alert and oriented 3, she is complaining of nausea and actually had 2 episodes of vomiting today, otherwise she denies any complaints, cardiology evaluation including stress echocardiogram, and consultation reviewed, also input from Dr. Raphael regarding ovarian vein thrombosis were reviewed, at this time will transfer patient off telemetry floor to a regular medical floor, we are awaiting gastroenterology evaluation regarding liver mass, dilated common bile duct, and nausea and vomiting. On 11/27/2017 patient was seen and examined, she is alert and oriented 3 in no apparent distress, she is still complaining of episodes of nausea and vomiting after eating, she was offered the choice of staying until tomorrow and having an EGD, Dr. Christensen was contacted and he agreed to the plan, however patient chose to be discharged home, and she will be followed by Dr. Christensen as outpatient for possible EGD, and for MRI to assess liver abnormality Patient Condition at Discharge: Undetermined Plan - Discharge Summary Discharge Rx Participant: No New Discharge Prescriptions: New Aspirin 325 mg PO DAILY tab Metoprolol Tartrate [Lopressor] 25 mg PO BID tab Nitroglycerin Sl Tabs [Nitrostat] 0.4 mg SUBLINGUAL Q5M PRN tab PRN Reason: Chest Pain Continue Omeprazole 20 mg PO DAILY Discharge Medication List Omeprazole 20 mg PO DAILY 11/24/17 [History] Aspirin 325 mg PO DAILY tab 11/27/17 [Rx] Metoprolol Tartrate [Lopressor] 25 mg PO BID tab 11/27/17 [Rx] Nitroglycerin Sl Tabs [Nitrostat] 0.4 mg SUBLINGUAL Q5M PRN tab 11/27/17 [Rx] Follow up Appointment(s)/Referral(s): Pricilla Morris MD [STAFF PHYSICIAN] - 12/08/17 9:15 am Pari Tong DO [Primary Care Provider] - 12/01/17 1:00 pm (With Ingrid HELTON.) Patient Instructions/Handouts: Chest Pain (ED), Stress Echocardiogram (DC)
== END 2017-11-27 18:37 | disposition home or self-care (01) ==
LOC: EC 22:42 → 6SEL 11-25 00:34 → 3SCARD 11-27 11:09
PROVIDERS: ADMIT Internal Medicine; ATTEND Internal Medicine
DX: R07.89 Other chest pain (principal); I10 Essential (primary) hypertension; K21.9 Gastro-esophageal reflux disease without esophagitis; I71.2 Thoracic aortic aneurysm, without rupture; K76.89 Other specified diseases of liver; K83.8 Other specified diseases of biliary tract; R05 Cough; M25.512 Pain in left shoulder; R11.2 Nausea with vomiting, unspecified; E89.0 Postprocedural hypothyroidism; Z79.899 Other long term (current) drug therapy; Z82.49 Family history of ischemic heart disease and other diseases of the circulatory system; Z80.7 Family history of other malignant neoplasms of lymphoid, hematopoietic and related tissues
CPT/HCPCS: 96361 ×3; 96376; 96374; 99291; 36415; 93005; 93306; 93351; 80061; 80053 ×3; 82550 ×2; 82553 ×2; 83605; 83735; 84100; 84484 ×2; 85025 ×3; 85049; 85610; 85730 ×2; 76700; 93970; 93971; 71275; 74177; G0378 ×3; J1644 ×2; Q9967

== ENCOUNTER → 2018-08-05 | Outpatient (CLI) | payer BC ==
--- NOTE | 2018-08-06 15:00 | MR ---
EXAMINATION TYPE: MR liver wo/w con DATE OF EXAM: 08/05/2018 COMPARISON: CT scan of the abdomen 11/24/2017 HISTORY: Liver disease, unspecified CONTRAST: Standard multiplanar, multisequence MRI departmental protocol utilizing 5.5 mL intravenous Gadavist g adolinium contrast. FINDINGS: There are numerous rounded fluid signal foci throughout the liver that measure up to 1.3 cm consisten t with simple cysts. There is a cyst in the left lobe of the liver with also simple features and efe ures 2.7 cm. The bile ducts are not dilated. There is no evidence of pleural effusion. Spleen has normal size and contour. Stomach appears normal. Pancreatic duct appears normal. There is no evidence of pancreatic mass. There is no evidence of adrenal mass. Kidneys have normal size and contour. There is no hydronephrosi s. There is no evidence of retroperitoneal adenopathy. There is no sign of ascites. Contrast images show no pathologic enhancement. Visualized bony structures are intact. IMPRESSION: Multiple simple hepatic cysts are unchanged compared to old CT scan. Otherwise negative exam.
== END | disposition home or self-care (01) ==
LOC: RADMRIMAIN 14:37
PROVIDERS: ATTEND Family Medicine
DX: K76.89 Other specified diseases of liver (principal)
CPT/HCPCS: 74183; A9585

== ENCOUNTER → 2018-08-11 | Outpatient (CLI) | payer BC ==
--- NOTE | 2018-08-14 09:43 | MM ---
Reason for exam: screening (asymptomatic). Last mammogram was performed 1 year and 7 months ago. History: Patient is postmenopausal. Family history of breast cancer in maternal grandmother. Benign US right guided mammotome of the right breast, October 13, 2007. Took hormonal contraceptives for 5 years beginning at age 19. Physical Findings: A clinical breast exam by your physician is recommended on an annual basis and results should be correlated with mammographic findings. MG 3D Screening Mammo W/Cad Bilateral CC and MLO view(s) were taken. Prior study comparison: January 03, 2017, bilateral MG screening mammo w CAD. November 10, 2012, bilateral digital screening mammo w/CAD. The breast tissue is heterogeneously dense. This may lower the sensitivity of mammography. Benign appearing bilateral calcifications. No suspicious abnormality. Right biopsy marker. No significant changes when compared with prior studies. ASSESSMENT: Benign, BI-RAD 2 RECOMMENDATION: Routine screening mammogram of both breasts in 1 year.
== END | disposition home or self-care (01) ==
LOC: RADMAMWWP 15:08
PROVIDERS: ATTEND Family Medicine
DX: Z12.31 Encounter for screening mammogram for malignant neoplasm of breast (principal)
CPT/HCPCS: 77063; 77067

== ENCOUNTER → 2019-01-23 | Outpatient (CLI) | payer BC ==
--- NOTE | 2019-01-25 08:28 | CT ---
EXAMINATION TYPE: CT angio thor/abd pel aorta DATE OF EXAM: 01/23/2019 COMPARISON: MRI of the liver dated 08/05/[address] abdomen pelvis dated 11/24/2017 HISTORY: followup aneurysm [address] DLP: 651 mGycm. Automated Exposure Control for Dose Reduction was Utilized. CONTRAST: CT scan of the thorax, abdomen and pelvis is performed with IV Contrast, patient injected with 100 mL of Isovue 370. FINDINGS: LUNGS: The lungs are grossly clear, there is no concerning parenchymal mass or nodule identified. T here is no pleural effusion or pneumothorax seen. The tracheobronchial tree is patent. VASCULATURE: Ascending thoracic aorta measures 4.0 cm. This is on coronal image 10 when measured in a similar fashion on the prior of 11/24/2017 this is unchanged in size. The aortic root is within norm al limits measuring 3.3 cm. Aortic arch is also within normal limits. 3.0 cm. Ascending thoracic aort a is within normal size measuring 2.4 cm. Abdominal aorta is within normal limits in size with the up per abdominal aorta measuring 2.1 cm, the mid abdominal aorta measuring 1.6 cm in the distal abdomina l aorta 1.4 cm. Evaluation for dissection is nondiagnostic at the aortic root and proximal ascending thoracic aortic pulsation artifact. Remainder of the aorta within the chest, abdomen, and pelvis demo nstrate no evidence of dissection. No significant ostial stenosis of the celiac axis, SMA, renal elizabeth holly, or PATRICIA. Minimal atherosclerosis at the origin of the celiac axis. Mild atherosclerosis of the l eft common iliac artery. Common iliac arteries, internal iliac arteries and external iliac arteries a re patent and the visualized portions. Precontrast images demonstrate no evidence of intramural hemat rodney. MEDIASTINUM: There are no greater than 1 cm hilar or mediastinal lymph nodes. No pericardial effusi on is seen. The left thyroid lobe appears surgically absent. Main pulmonary artery is within normal limits of size. No significant coronary artery calcifications. LIVER/GB: The nonenhancing lesion in the left hepatic lobe has peripheral calcifications and measures 3.3 cm. When measured in a similar fashion this is unchanged from the prior of 2018 and MRI liver. M RI liver demonstrates no abnormal enhancement over the lesion was not T2 hyperintense and not compati ble with a simple cyst. Given peripheral calcification sequela of prior infection is possible such as hematoma from prior abscess or prior atypical infection. No interval growth. Multilevel scattered he patic cysts remain within the liver. No radiopaque calculi are seen in the gallbladder PANCREAS: No significant abnormality is seen. SPLEEN: No significant abnormality is seen. ADRENALS: No significant abnormality is seen. KIDNEYS: Unenhanced images demonstrate no evidence of nephrolithiasis. Kidneys enhance symmetrically. No hydronephrosis. BOWEL: There is moderate degree colonic fecal stasis. No dilated large or small bowel. GENITAL ORGANS: Retroverted uterus. LYMPH NODES: No greater than 1cm abdominal or pelvic lymph nodes are appreciated. OSSEOUS STRUCTURES: Mild osteopenia. Subtle levoscoliosis of the lumbar spine positional. No signific ant abnormality is seen. IMPRESSION: 1. Ascending thoracic aortic aneurysm is stable in comparison to the exam of 11/24/2017. No additiona l aneurysmal dilatation of the remainder of the thoracic aorta or abdominal aorta. 2. Left lobe hepatic lesion is stable in size although does not appear compatible with a simple cyst. Peripheral calcifications are present and this may on the basis of prior infection or trauma as no e nhancement is seen on the prior MRI of 08/05/2018.
== END | disposition home or self-care (01) ==
LOC: RADCTMAIN 14:05
PROVIDERS: ATTEND Internal Medicine Interventional Cardiology
DX: I71.2 Thoracic aortic aneurysm, without rupture (principal); I71.4 Abdominal aortic aneurysm, without rupture
CPT/HCPCS: 71275; 74174; Q9967

== ENCOUNTER → 2020-09-18 | Outpatient (CLI) | payer BC ==
--- NOTE | 2020-09-19 09:10 | CT ---
EXAMINATION TYPE: CT angio chest DATE OF EXAM: 09/18/2020 COMPARISON: 01/23/2019 HISTORY: 60-year-old female I 1 7.2, Thoracic aortic aneurysm w/o rupture. TECHNIQUE: Contiguous axial scanning of the chest performed without and with IV Contrast, patient inj ected with 100 mL of Isovue 370. Coronal/sagittal MIP reconstructions performed. CT DLP: 259.50 mGycm Automated exposure control for dose reduction was used. FINDINGS: Heart upper limits of normal in size without pericardial effusion. Aortic root normal caliber 3.4 cm. Ascending aorta mildly ectatic at 4.0 cm, unchanged. Proximal arch measures 3.2 cm, unchanged. Distal arch measures 3.2 cm, mildly ectatic, unchanged. Upper descending thoracic aorta normal caliber at 2.5 cm. Lower descending thoracic aorta normal caliber at 2.2 cm. Initial noncontrast images show no evidence for acute intramural hematoma. No evidence for aortic dissection. Left lobe of the thyroid gland appears surgically absent. No thoracic lymphadenopathy by CT size crit eria. Tiny calcified granuloma posterior right lower lobe. No consolidation or pleural effusion. Tiny hiatal hernia. Scattered hepatic hypodensities measuring up to 1.5 cm are unchanged, likely cysts. The 3.5 x 2.2 cm heterogeneous density oval lesion left hepatic dome with some peripheral calcificati ons appear similar to prior exams. We note MRI liver on 08/05/2018 which shows a lesion with vague T2 hyperintensity, bright T1 signal, and nonenhancement. A hemorrhagic or proteinaceous cyst is favored. Bones: Accentuated thoracic kyphosis. IMPRESSION: MILD ANEURYSM ASCENDING AORTA 4.0 CM AND ECTATIC AORTIC ARCH AT 3.2 CM, UNCHANGED.
== END | disposition home or self-care (01) ==
LOC: RADCTMAIN 16:07
PROVIDERS: ATTEND Internal Medicine Interventional Cardiology
DX: I71.2 Thoracic aortic aneurysm, without rupture (principal)
CPT/HCPCS: 71275; Q9967

== ENCOUNTER → 2020-11-20 | Outpatient (CLI) | payer BC ==
--- NOTE | 2020-11-21 11:02 | MM ---
Reason for exam: screening (asymptomatic). Last mammogram was performed 2 years and 3 months ago. History: Patient is postmenopausal. Family history of breast cancer in maternal grandmother. Benign US right guided mammotome of the right breast, October 13, 2007. Took hormonal contraceptives for 5 years beginning at age 19. Physical Findings: A clinical breast exam by your physician is recommended on an annual basis and results should be correlated with mammographic findings. MG Screening Mammo w CAD Bilateral CC and MLO view(s) were taken. Prior study comparison: August 11, 2018, bilateral MG 3d screening mammo w/cad. January 03, 2017, bilateral MG screening mammo w CAD. The breast tissue is extremely dense which could obscure a lesion on mammography. Benign appearing bilateral calcifications. Previous mammotome biopsy in the right breast. There is chronic nodularity in the left breast. ASSESSMENT: Benign, BI-RAD 2 RECOMMENDATION: Routine screening mammogram of both breasts in 1 year.
== END | disposition home or self-care (01) ==
LOC: RADMAMWWP 09:39
PROVIDERS: ATTEND Family Medicine
DX: Z12.31 Encounter for screening mammogram for malignant neoplasm of breast (principal)
CPT/HCPCS: 77067

== ENCOUNTER → 2021-12-10 | Outpatient (CLI) | payer BC ==
--- NOTE | 2021-12-11 07:41 | MM ---
Reason for Exam: Screening (asymptomatic). Last screening mammogram was performed 12 month(s) ago. Patient History: Menarche at age 11. First Full-Term at age 28. Postmenopausal. Hormonal Contraceptives, starting at age 19 for 5 years. 10/13/2007, Benign Core Biopsy on the right side. Maternal grandmother had breast cancer. Risk Values: Caryn 5 year model risk: 2.0%. NCI Lifetime model risk: 9.0%. Prior Study Comparison: 01/03/2017 Bilateral Screening Mammogram, [facility]. 08/11/2018 Bilateral Screening Mammogram, [facility]. 11/20/2020 Bilateral Screening Mammogram, [facility]. Tissue Density: The breast tissue is heterogeneously dense. This may lower the sensitivity of mammography. Findings: Analyzed By CAD. There is no suspicious group of microcalcifications or new suspicious mass in either breast. Overall Assessment: Negative, BI-RAD 1 Management: Screening Mammogram of both breasts in 1 year. A clinical breast exam by your physician is recommended on an annual basis and results should be correlated with mammographic findings. Electronically signed and approved by: Rm Gamino M.D. Radiologis
== END | disposition home or self-care (01) ==
LOC: RADMAMWWP 07:24
PROVIDERS: ATTEND Family Medicine
DX: Z12.31 Encounter for screening mammogram for malignant neoplasm of breast (principal)
CPT/HCPCS: 77067

== ENCOUNTER → 2022-12-14 | Outpatient (CLI) | payer BC ==
--- NOTE | 2022-12-15 09:11 | MM ---
Reason for Exam: Screening (asymptomatic). Last screening mammogram was performed 12 month(s) ago. Patient History: Menarche at age 11. First Full-Term at age 28. Postmenopausal. Hormonal Contraceptives, starting at age 19 for 5 years. 10/13/2007, Benign Core Biopsy on the right side. Maternal grandmother had breast cancer. Risk Values: Caryn 5 year model risk: 2.1%. NCI Lifetime model risk: 8.7%. Prior Study Comparison: 08/11/2018 Bilateral Screening Mammogram, [facility]. 11/20/2020 Bilateral Screening Mammogram, [facility]. 12/10/2021 Bilateral MG screening mammo w CAD, [facility]. Tissue Density: The breast tissue is heterogeneously dense. This may lower the sensitivity of mammography. Findings: Analyzed By CAD. There is no suspicious group of microcalcifications or new suspicious mass in either breast. Biopsy clip within the right breast. Chronic nodularity within the left breast. Overall Assessment: Benign, BI-RAD 2 Management: Screening Mammogram of both breasts in 1 year. A clinical breast exam by your physician is recommended on an annual basis and results should be correlated with mammographic findings. Note on Caryn scores and lifetime risk: 1. A Caryn score greater than 3% is considered moderate risk. If this is the case, consider specialist referral to assess eligibility for a risk reducing agent. If overall lifetime risk for the development of breast cancer is 20% or higher, the patient may qualify for future screening with alternating mammogram and breast MRI. Electronically signed and approved by: Lawrence Brannon D.O.
== END | disposition home or self-care (01) ==
LOC: RADMAMWWP 13:30
PROVIDERS: ATTEND Family Medicine
DX: Z12.31 Encounter for screening mammogram for malignant neoplasm of breast (principal); Z78.0 Asymptomatic menopausal state; Z80.3 Family history of malignant neoplasm of breast
CPT/HCPCS: 77067

== ENCOUNTER → 2023-12-26 | Outpatient (CLI) | payer BC ==
--- NOTE | 2024-01-03 08:49 | MM ---
Reason for Exam: Screening (asymptomatic). Last mammogram was performed 1 year(s) and 1 month(s) ago. Patient History: Menarche at age 11. First Full-Term at age 28. Postmenopausal. Hormonal Contraceptives, starting at age 19 for 5 years. 10/13/2007, Benign Core Biopsy on the right side. Maternal grandmother had breast cancer. Risk Values: Caryn 5 year model risk: 2.1%. NCI Lifetime model risk: 8.4%. Prior Study Comparison: 11/20/2020 Bilateral Screening Mammogram, [facility]. 12/10/2021 Bilateral MG screening mammo w CAD, [facility]. 12/14/2022 Bilateral MG screening mammo w CAD, [facility]. Tissue Density: The breasts are heterogeneously dense, which may obscure small masses. Findings: Analyzed By CAD. Right breast: There is no suspicious group of microcalcifications or new suspicious mass. Left breast: There is no suspicious group of microcalcifications or new suspicious mass. Overall Assessment: Negative, BI-RAD 1 Management: Screening Mammogram of both breasts in [address] [facility] will attempt to contact patient to return for supplemental views and ultrasound if indicated. Patient should continue monthly self-breast exams. A clinical breast exam by your physician is recommended on an annual basis. This exam should not preclude additional follow-up of suspicious palpable abnormalities. Note on Caryn scores and lifetime risk: 1. A Caryn score greater than 3% is considered moderate risk. If this is the case, consider specialist referral to assess eligibility for a risk reducing agent. 2. If overall lifetime risk for the development of breast cancer is 20% or higher, the patient may qualify for future screening with alternating mammogram and breast MRI. [facility], , 01/03/2024 8:46 AM. Electronically signed and approved by: Otilio Arauz DO
== END | disposition home or self-care (01) ==
LOC: RADMAMWWP 08:47
PROVIDERS: ATTEND Family Medicine
DX: Z12.31 Encounter for screening mammogram for malignant neoplasm of breast (principal); R92.333 Mammographic heterogeneous density, bilateral breasts; Z78.0 Asymptomatic menopausal state; Z80.3 Family history of malignant neoplasm of breast
CPT/HCPCS: 77067

== ENCOUNTER → 2024-03-01 | Outpatient (CLI) | payer BC ==
--- NOTE | 2024-03-02 22:43 | CT ---
EXAMINATION TYPE: CT chest wo con DATE OF EXAM: 03/01/2024 5:01 PM COMPARISON: 09/18/2020 CLINICAL INDICATION: Female, 63 years old with history of R93.89, Shoulder and back pain x3 months. TECHNIQUE: Axial images were obtained at 5 mm thick sections. Reconstructed images are reviewed on [employer] computer in the coronal plane. Contrast used: mL of , (none if empty) Oral contrast used: (none if empty) CT DLP: 132.1 mGycm, Automated exposure control for dose reduction was used. FINDINGS: Portion of the thyroid visualized is normal. No suspicious lung nodules or focal infiltrates are present. No enlarged mediastinal or hilar adenopathy is evident. The ascending aorta diameter at the level o f the main pulmonary artery is 4.3 cm. Appearance is stable from comparison. Measurement is felt to b e slightly inaccurate due to lack of intravenous contrast and motion artifact. Previous measurement 4 .0 cm. The main pulmonary artery diameter at the bifurcation is 2.[address] sections are obtained through the upper abdomen. Abdomen is essentially unremarkable. IMPRESSION: 1. Ascending thoracic aortic aneurysm appears stable to minimally enlarged from comparison. Continued monitoring is recommended. [facility], , 03/02/2024 10:41 PM
== END | disposition home or self-care (01) ==
LOC: RADCTMAIN 15:40
PROVIDERS: ATTEND Family Medicine
DX: R93.89 Abnormal findings on diagnostic imaging of other specified body structures (principal); I71.21 Aneurysm of the ascending aorta, without rupture
CPT/HCPCS: 71250